=== PATIENT | male | born 2000 | race African-American/Black ===

== ENCOUNTER 2019-01-31 22:28 | Emergency (ER) | payer OTHER ==
[2019-01-31] MEDS ORDERED: NS 1,000 ML IV ONE ×2 (22:43→23:16)
[2019-01-31] MEDS ORDERED: LORazepam 2 MG/ML INJ IVP ONE (22:44)
--- NOTE | 2019-01-31 22:44 | EDPHY ---
H & P Stated Complaint: body cramping after a basketball game Time Seen by Provider: 01/31/19 22:41 HPI/ROS: HPI: Patient is a 18-year-old male who presents with Chief Complaint: All over body cramping status post basketball game Location: body Quality: Cramping Duration: 30 min to 1 hr Signs and Symptoms: no shortness of breath at rest, no shortness of breath on exertion, no cough, no chest pain, no palpitations, no lower extremity edema, no wheezing, no orthopnea, no paroxysmal nocturnal dyspnea, no fever, no injury/ trauma, no hemoptysis, no carpal pedal spasms Timing: Acute, constant Severity: Moderate Context: Patient is a student at [employer] started playing a basketball game around 7:00 p.m. Reports was drinking water throughout the game and at the end of the game. Played approximately 2.5 hr. Patient reports that approximately 30 min to 1 hr prior to arrival he started to experience all over muscle cramping. He denies any chest pain, shortness of breath, vision changes, headache, abdominal pain, nausea, vomiting. Reports that he has a history of muscle cramping with strenuous activity. Girlfriend at bedside reports that this is normal for him. No history of cardiac disease. Modifying Factors: None Comment: ROS: A comprehensive 10 system review of systems is otherwise negative aside from elements mentioned in the history of present illness. MEDICAL/SURGICAL/SOCIAL HISTORY: Medical history: Generally healthy. Does not take any regular medications. Surgical history: Denies Social history: Student at [employer] CONSTITUTIONAL: Moderate distress, pacing up and down Emergency Room hallways, well-appearing, physically fit black male, awake and alert, no obvious distress HEENT: Atraumatic and normocephalic, PERRL, EOMI. Nares patent; no rhinorrhea; no nasal mucosal edema. Tympanic membranes clear. Oropharynx clear, no exudate and moist pink mucosa. Airway patent. No lymphadenopathy. No meningismus. Cardiovascular: Normal S1/S2, regular rate, regular rhythm, without murmur rub or gallop. PULMONARY/CHEST: Symmetrical and nontender. Clear to auscultation bilaterally. Good air movement. No accessory muscle usage. ABDOMEN: Soft, nondistended, nontender, no rebound, no guarding, no peritoneal signs, no masses or organomegaly. No CVAT. EXTREMITIES: 2/2 pulses, strength 5/5, no deformities, no clubbing, no cyanosis or edema. Negative Homans sign. NEUROLOGICAL: no focal neuro deficits. GCS 15. SKIN: Warm and dry, no erythema. no rash. Good capillary refill. Source: Patient, Family Exam Limitations: No limitations - Personal History Current Tetanus/Diphtheria Vaccine: Unsure Current Tetanus Diphtheria and Acellular Pertussis (TDAP): Unsure - Medical/Surgical History Hx Asthma: No Hx Chronic Respiratory Disease: No Hx Diabetes: No Hx Cardiac Disease: No Hx Renal Disease: No Hx Cirrhosis: No Hx Alcoholism: No Hx HIV/AIDS: No Hx Splenectomy or Spleen Trauma: No Other PMH: denies - Social History Smoking Status: Never smoked Constitutional: Initial Vital Signs Temperature (C) 37.6 C 01/31/19 22:34 Heart Rate 65 01/31/19 22:34 Respiratory Rate 18 01/31/19 22:34 Blood Pressure 114/98 H 01/31/19 22:34 O2 Sat (%) 98 01/31/19 22:34 O2 Delivery Mode Room Air Allergies/Adverse Reactions: No Known Allergies Allergy (Unverified 01/31/19 22:37) Home Medications: Medication Instructions Recorded NK [No Known Home Meds] 01/31/19 Medical Decision Making ED Course/Re-evaluation: Vital signs reviewed and stable upon arrival. IV access and laboratory studies ordered Patient given 1 L normal saline and IV Ativan 1 mg 2317: Labs reviewed. WBC 13 K, sodium 129, potassium 3.4, creatinine 1.1, CK 696 2340: Notified by friend at bedside that patient needs to use the bathroom to urinate. 0001: repeat ck, bmp sent 0022: Sodium 134, potassium 3.5, creatinine 1.0, CK 680 Patient is eating and drinking without difficulty without any muscle cramping. Appropriate for discharge home with no strenuous exercise precautions for the next 48-72 hours This patient was seen under the supervision of my secondary supervising physician. I evaluated care for this patient with attending. Differential Diagnosis: Differential diagnosis includes but is not limited to muscle cramps, electrolyte imbalance, rhabdomyolysis. - Data Points Laboratory Results: Laboratory Results 01/31/19 22:50 01/31/19 23:50 01/31/19 01/31/19 01/31/19 23:50 22:50 22:50 WBC 13.00 10^3/uL H 10^3/uL (3.80-9.50) RBC 5.73 10^6/uL 10^6/uL (4.40-6.38) Hgb 17.1 g/dL g/dL (13.7-17.5) Hct 48.9 % % (40.0-51.0) MCV 85.3 fL fL (81.5-99.8) MCH 29.8 pg pg (27.9-34.1) MCHC 35.0 g/dL g/dL (32.4-36.7) RDW 12.1 % % (11.5-15.2) Plt Count 294 10^3/uL 10^3/uL (150-400) MPV 8.8 fL fL (8.7-11.7) Neut % (Auto) 74.5 % H % (39.3-74.2) Lymph % (Auto) 16.5 % % (15.0-45.0) Lee % (Auto) 7.5 % % (4.5-13.0) Eos % (Auto) 0.5 % L % (0.6-7.6) Baso % (Auto) 0.7 % % (0.3-1.7) Nucleat RBC Rel Count 0.0 % % (0.0-0.2) Absolute Neuts (auto) 9.69 10^3/uL H 10^3/uL (1.70-6.50) Absolute Lymphs (auto) 2.14 10^3/uL 10^3/uL (1.00-3.00) Absolute Monos (auto) 0.98 10^3/uL H 10^3/uL (0.30-0.80) Absolute Eos (auto) 0.06 10^3/uL 10^3/uL (0.03-0.40) Absolute Basos (auto) 0.09 10^3/uL 10^3/uL (0.02-0.10) Absolute Nucleated RBC 0.00 10^3/uL 10^3/uL (0-0.01) Immature Gran % 0.3 % % (0.0-1.1) Immature Gran # 0.04 10^3/uL 10^3/uL (0.00-0.10) Sodium 134 mEq/L L mEq/L 129 mEq/L L mEq/L (135-145) (135-145) Potassium 3.5 mEq/L mEq/L 3.4 mEq/L L mEq/L (3.5-5.2) (3.5-5.2) Chloride 102 mEq/L mEq/L 95 mEq/L L mEq/L (97-110) (97-110) Carbon Dioxide 22 mEq/l mEq/l 22 mEq/l mEq/l (22-31) (22-31) Anion Gap 10 mEq/L mEq/L 12 mEq/L mEq/L (6-14) (6-14) BUN 17 mg/dL mg/dL 18 mg/dL mg/dL (7-23) (7-23) Creatinine 1.0 mg/dL mg/dL 1.1 mg/dL mg/dL (0.7-1.3) (0.7-1.3) Estimated GFR > 60 > 60 Glucose 83 mg/dL mg/dL 90 mg/dL mg/dL (70-100) (70-100) Calcium 8.8 mg/dL mg/dL 10.0 mg/dL mg/dL (8.5-10.4) (8.5-10.4) Magnesium 1.6 mg/dL mg/dL (1.6-2.3) Total Bilirubin 1.0 mg/dL mg/dL (0.1-1.4) Conjugated Bilirubin 0.3 mg/dL mg/dL (0.0-0.5) Unconjugated Bilirubin 0.7 mg/dL mg/dL (0.0-1.1) AST 53 IU/L IU/L (17-59) ALT 46 IU/L IU/L (21-72) Alkaline Phosphatase 84 IU/L IU/L (38-126) Creatine Kinase 680 IU/L H IU/L 696 IU/L H IU/L (0-224) (0-224) CK-MB (CK-2) Fraction Pending 4.67 ng/mL H ng/mL (0.00-4.55) CK-MB (CK-2) % Pending 0.7 % % (0.0-4.0) Creatine Kinase Interp Pending NEGATIVE (NEGATIVE) Total Protein 8.8 g/dL H g/dL (6.3-8.2) Albumin 5.0 g/dL g/dL (3.5-5.0) Lipase 93 IU/L IU/L (23-300) Medications Given: Discontinued Medications Sodium Chloride (Ns) 1,000 mls @ 0 mls/hr IV EDNOW ONE; Wide Open PRN Reason: Protocol Stop: 01/31/19 22:44 Last Admin: 01/31/19 22:49 Dose: 1,000 mls Sodium Chloride (Ns) 1,000 mls @ 0 mls/hr IV EDNOW ONE; Wide Open PRN Reason: Protocol Stop: 01/31/19 23:17 Last Admin: 01/31/19 23:17 Dose: 1,000 mls Lorazepam (Ativan Injection) 1 mg IVP EDNOW ONE Stop: 01/31/19 22:45 Last Admin: 01/31/19 22:49 Dose: 1 mg Departure - Departure Disposition: Home, Routine, Self-Care Clinical Impression: Muscle cramping Condition: Good Instructions: Muscle Cramp (ED) Additional Instructions: Rest as much as possible until you are feeling better. Please refrain from strenuous activity for a minimum 48-72 hr. Drink plenty of fluids and electrolytes during exercise. Consume a minimum of 8-10 glasses of water or electrolyte fluid replacement drinks that include Gatorade, Powerade, Pedialyte. Referrals: REJI Beckwith,. [Clinic] - As per Instructions
[2019-01-31 23:00] LABS: PLATELET COUNT 294 10^3/uL (150-400)
[2019-01-31 23:11] LABS: CREATINE KINASE 696 IU/L (0-224)
[2019-02-01 00:21] LABS: CREATINE KINASE 680 IU/L (0-224)
[2019-02-01 00:32] VITALS: BP 135/78
== END 2019-02-01 00:31 | disposition home or self-care (01) ==
DX: R25.2 Cramp and spasm (principal); E86.9 Volume depletion, unspecified
CPT/HCPCS: 96374; J2060